=== PATIENT | male | born 1955 | race Caucasian/White ===

== ENCOUNTER → 2017-03-12 | Outpatient (CLI) | payer BC ==
--- NOTE | 2017-03-12 17:09 | PCVCIMAG ---
APPROVED REPORT Study performed: 03/12/2017 15:01:09 EXAM: Comprehensive 2D, Doppler, and color-flow Echocardiogram Status: routine Other Information Study Quality: Adequate Indications Angina, HLP 2D Dimensions LVEF(%): 54.97 (>50%) IVSd: 9.52 (7-11mm) LVDd: 40.61 mm PWd: 10.23 (7-11mm) LVDs: 29.17 (25-40mm) Left Atrium: 30.47 (27-40mm) Aortic Root: 32.25 mm LV Single Plane 4CH: 64.40 % LV Single Plane 2CH: 63.55 %López's LVEF: 63.97 % Biplane EF: 64.1 % Volumes Left Atrial Volume (Systole) Single Plane 4CH: 52.96 mLSingle Plane 2CH: 63.42 mL LA ESV Index: 30.00 mL/m2 Aortic Valve AoV Peak Jim.: 1.45 m/s AO Peak Gr.: 8.36 mmHgLVOT Max P.42 mmHg LVOT Max V: 1.05 m/s Mitral Valve E/A Ratio: 1.5 MV Decel. Time: 311.06 ms MV E Max Jim.: 0.57 m/s MV A Jim.: 0.37 m/s IVRT: 117.65 ms TDI E/Lateral E': 7.00E/Medial E': 8.80 Pulmonary Valve PV Peak Jim.: 1.10 m/sPV Peak Gr.: 4.84 mmHg Pulmonary Vein P Vein S: 0.31 m/sP Vein A: 0.33 m/s P Vein D: 0.37 m/sP Vein A Dur.: 121.1 msec P Vein S/D Ratio: 0.84 Tricuspid Valve TR Peak Jim.: 2.20 m/s TR Peak Gr.: 19.44 mmHg Left Ventricle The left ventricle is normal size. There is normal LV segmental wall motion. There is normal left ventricular wall thickness. Left ventricular systolic function is normal. The left ventricular ejection fraction is within the normal range. LVEF is 60-65%. Grade I - abnormal relaxation pattern. Right Ventricle The right ventricle is normal size. The right ventricular systolic function is normal. Atria The left atrium size is normal. Right atrium is normal in size. Aortic Valve The aortic valve is normal in structure. No aortic regurgitation is present. There is no aortic valvular stenosis. Mitral Valve The mitral valve is normal in structure. There is no mitral valve regurgitation noted. No evidence of mitral valve stenosis. Tricuspid Valve The tricuspid valve is normal in structure. Trivial regurgitation with a PAP of 26 mmHg. Pulmonic Valve The pulmonary valve is normal in structure. There is no pulmonic valvular regurgitation. Great Vessels The aortic root is normal in size. IVC is normal in size and collapses with >50% inspiration Pericardium There is no pericardial effusion. <Conclusion> The left ventricle is normal size. Left ventricular systolic function is normal. Grade I - abnormal relaxation pattern. The right ventricle is normal size. The left atrium size is normal. The aortic valve is normal in structure. The mitral valve is normal in structure. Trivial regurgitation with a PAP of 26 mmHg.
== END | disposition home or self-care (01) ==
LOC: PCVCIMAG 14:50
PROVIDERS: ATTEND Internal Medicine Cardiovascular Disease
DX: I07.1 Rheumatic tricuspid insufficiency (principal); E78.00 Pure hypercholesterolemia, unspecified; K21.9 Gastro-esophageal reflux disease without esophagitis; Z79.82 Long term (current) use of aspirin; Z79.899 Other long term (current) drug therapy; Z87.891 Personal history of nicotine dependence
CPT/HCPCS: 93005; 93306; G0463

== ENCOUNTER → 2018-04-15 | Outpatient (CLI) | payer BC | END | disposition home or self-care (01) | LOC: PCVCIMAG 16:27 | DX: R00.2 Palpitations (principal); E78.5 Hyperlipidemia, unspecified | CPT/HCPCS: 93306 ==